=== PATIENT | female | born 1970 | race Caucasian/White ===

== ENCOUNTER → 2020-01-11 16:41 | Outpatient (CLI) | payer OTHER, SELFPAY ==
[2020-01-11 14:24] VITALS: BMI 35.2
[2020-01-16 15:28] LABS: HPV APTIMA, High Risk Negative (Negative)
== END ==
PROVIDERS: Referring Provider Nurse Practitioner Women's Health; Visit Provider Nurse Practitioner Women's Health
DX: Z12.4 Encounter for screening for malignant neoplasm of cervix (principal)
CPT/HCPCS: 87624; 88175; G0145

== ENCOUNTER → 2020-01-17 09:03 | Outpatient (CLI) | payer OTHER, SELFPAY ==
[2020-01-11 14:24] VITALS: BMI 35.2
[2020-01-17 09:20] LABS: Absolute Lymphocyte Count 1.05 X10^3/uL (0.83-4.51); Absolute Neutrophil Count 1.7 X10^3/uL (2.0-7.7); Basophil# 0.02 X10^3/uL; Basophil% 0.6 % (0-1); Eosinophil# 0.09 X10^3/uL; Eosinophils% 2.6 % (0-5); Hematocrit 42.3 % (37-47); Lymphocyte # 1.05 X10^3/ul (4.0); Lymphocyte % 30.3 % (19-41); Mean Corp Hgb Conc 33.1 g/dL (32-36); Mean Corpuscular Hgb 32.4 pg (27.0-32.0); Mean Corpuscular Volume 97.9 fL (81-99); Mean Platelet Vol. 9.9 fl (6.2-12.0); Monocyte# 0.55 X10^3/uL; Monocyte% 15.9 % (0-10); NRBC Flagged by Analyzer 0 % (0-5); Neutrophil # 1.74 X10^3/uL (2.7-7.7); Neutrophil % 50.3 % (47-70); Platelet Count 252 K/mm3 (150-450); RBC Distribution Width CV 12.3 % (11.6-14.6); RBC Distribution Width SD 44.4 fl (35.1-43.9); Red Blood Count 4.32 M/mm3 (4.2-5.4); White Blood Count 3.5 K/mm3 (4.4-11.0)
[2020-01-17 09:45] LABS: ALB/GLOB Ratio 0.9 RATIO (0.9-2.4); AST(SGOT) 21 U/L (15-37); Alanine Aminotransfer ALT/SGPT 38 U/L (13-56); Alkaline Phosphatase 41 U/L (45-117); Anion Gap 4 (5-15); BUN 14 mg/dL (7-18); BUN/Creat Ratio 16.7 RATIO (10-20); Calcium,Total 8.9 mg/dL (8.5-10.1); Chloride 105 mmol/L (98-107); Cholesterol 204 mg/dL (200); Creatinine, Serum 0.84 mg/dL (0.55-1.02); EST Glomerular Filtration Rate 77 mL/min (>60); Est Glom Filt Rate - Afr Amer 93 mL/min (>60); Globulin 4.6 g/dL (2.2-4.2); Glucose 83 mg/dL (74-106); High Density Lipoprotein 59 mg/dL; Potassium 3.7 mmol/L (3.5-5.1); Protein, Total 8.6 g/dL (6.4-8.2); Sodium Level 137 mmol/L (136-145); Thyroid Stim Hormone (TSH) 3.48 uIU/mL (0.358-3.74); Triglycerides 105 mg/dL; Very Low Density Lipoprotein 21 mg/dL (5-40)
== END ==
PROVIDERS: Referring Provider Nurse Practitioner Women's Health; Visit Provider Nurse Practitioner Women's Health
DX: Z00.00 Encounter for general adult medical examination without abnormal findings (principal); Z13.220 Encounter for screening for lipoid disorders; Z13.29 Encounter for screening for other suspected endocrine disorder; Z13.21 Encounter for screening for nutritional disorder
CPT/HCPCS: 36415; 80053; 80061; 82306; 84443; 85025

== ENCOUNTER → 2020-02-06 08:23 | Outpatient (CLI) | payer OTHER, SELFPAY ==
[2020-01-11 14:24] VITALS: BMI 35.2
--- NOTE | 2020-02-06 08:25 | BI_ITS ---
MAMMOGRAPHY - BILATERAL SCREENING REASON FOR EXAM: Female, 49 years old. Routine annual screening examination. PERTINENT HISTORY: Non-contributory. TECHNIQUE: Digital bilateral breast sarthak (3D mammographic acquisition) in the CC and MLO projections. 2-D mediolateral oblique (MLO) and craniocaudad (CC) views of both breasts were obtained. CAD: Full Field Digital Mammography with Computer Added Detection was performed. COMPARISON: Comparison is made with prior study dated 10/19/2016. FINDINGS: Breast Composition: The breasts are extremely dense, which lowers the sensitivity of mammography. There are no dominant masses or suspicious calcifications. Stable small benign-appearing bilateral axillary lymph nodes. No other significant abnormalities are identified. There has been no significant change since the prior study. BI/SCREEN MAMM (CAD) W/SARTHAK BILAT IMPRESSION: Stable bilateral screening mammogram. Yearly follow-up mammogram recommended. (A) ASSESSMENT CATEGORY: BIRADS Category 2: Benign. A letter regarding these results will be sent to the patient by the facility within 30 days. Approximately 10% of breast cancers are not detected by mammography. A normal mammogram should not delay biopsy of a clinically suspicious abnormality. [id number] Electronically Signed: Oli Enriquez, at 9:07 EST , Service support ,
== END ==
PROVIDERS: Referring Provider Nurse Practitioner Women's Health; Visit Provider Nurse Practitioner Women's Health
DX: Z12.31 Encounter for screening mammogram for malignant neoplasm of breast (principal)
CPT/HCPCS: 77063; 77067

== ENCOUNTER 2021-04-03 09:08 | Outpatient (CLI) | payer OTHER, SELFPAY ==
--- NOTE | 2021-04-03 09:09 | BI_ITS ---
MAMMOGRAPHY - BILATERAL SCREENING REASON FOR EXAM: Female, 50 years old. Routine annual screening examination. PERTINENT HISTORY: Non-contributory. TECHNIQUE: Digital bilateral breast sarthak (3D mammographic acquisition) in the CC and MLO projections. 2-D mediolateral oblique (MLO) and craniocaudad (CC) views of both breasts were obtained. CAD: Full Field Digital Mammography with Computer Added Detection was performed. COMPARISON: Comparison is made with prior study dated 02/06/2020 and 10/19/2016. FINDINGS: Breast Composition: The breasts are extremely dense, which lowers the sensitivity of mammography. There are no dominant masses or suspicious calcifications. Stable small benign-appearing bilateral axillary lymph nodes. No other significant abnormalities are identified. There has been no significant change since the prior study. BI/SCRN MAMM (CAD)W/SARTHAK BILAT IMPRESSION: Stable bilateral screening mammogram. Yearly follow-up mammogram recommended. (A) ASSESSMENT CATEGORY: BIRADS Category 2: Benign. A letter regarding these results will be sent to the patient by the facility within 30 days. Approximately 10% of breast cancers are not detected by mammography. A normal mammogram should not delay biopsy of a clinically suspicious abnormality. [id number] Electronically Signed: Oli Enriquez MD at 10:08 EST ,
== END 2021-04-03 23:59 | disposition home or self-care (01) ==
LOC: OPBI 09:08
PROVIDERS: Visit Provider Nurse Practitioner Women's Health
DX: Z12.31 Encounter for screening mammogram for malignant neoplasm of breast (principal)
CPT/HCPCS: 77063; 77067

== ENCOUNTER → 2022-04-06 | Outpatient (CLI) | payer OTHER, SELFPAY ==
--- NOTE | 2022-04-06 08:31 | BI_ITS ---
MAMMOGRAPHY - BILATERAL SCREENING REASON FOR EXAM: Female, 51 years old. Routine annual screening examination. PERTINENT HISTORY: Non-contributory. History of prior right needle breast biopsy. TECHNIQUE: Digital bilateral breast sarthak (3D mammographic acquisition) in the CC and MLO projections. 2-D mediolateral oblique (MLO) and craniocaudad (CC) views of both breasts were obtained. CAD: Full Field Digital Mammography with Computer Added Detection was performed. COMPARISON: Comparison is made with prior study dated 04/03/2021 and 02/06/2020. FINDINGS: Breast Composition: The breasts are extremely dense, which lowers the sensitivity of mammography. There are no dominant masses or suspicious calcifications. Stable small benign-appearing bilateral axillary lymph nodes. No other significant abnormalities are identified. There has been no significant change since the prior study. BI/SCRN MAMM (CAD)W/SARTHAK BILAT IMPRESSION: Stable bilateral screening mammogram. Yearly follow-up mammogram recommended. (A) ASSESSMENT CATEGORY: BIRADS Category 2: Benign. A letter regarding these results will be sent to the patient by the facility within 30 days. Approximately 10% of breast cancers are not detected by mammography. A normal mammogram should not delay biopsy of a clinically suspicious abnormality. [id number] Electronically Signed: Oli Enriquez MD at 9:53 EST ,
== END | disposition home or self-care (01) ==
LOC: OPBI 08:29
PROVIDERS: Referring Provider Nurse Practitioner Women's Health; Visit Provider Nurse Practitioner Women's Health
DX: Z12.31 Encounter for screening mammogram for malignant neoplasm of breast (principal)
CPT/HCPCS: 77063; 77067

== ENCOUNTER → 2023-04-07 | Outpatient (CLI) | payer OTHER, SELFPAY ==
--- NOTE | 2023-04-07 10:43 | BI_ITS ---
MAMMOGRAPHY - BILATERAL SCREENING REASON FOR EXAM: Female, 52 years old. Routine annual screening examination. PERTINENT HISTORY: Non-contributory. TECHNIQUE: Digital bilateral breast sarthak (3D mammographic acquisition) in the CC and MLO projections. 2-D mediolateral oblique (MLO) and craniocaudad (CC) views of both breasts were obtained. CAD: Full Field Digital Mammography with Computer Added Detection was performed. COMPARISON: Comparison is made with prior study dated April 06, 2022 and April 03, 2021. FINDINGS: Breast Composition: The breasts are extremely dense, which lowers the sensitivity of mammography. There are no dominant masses or suspicious calcifications. Stable bilateral fat containing axillary lymph nodes. No other significant abnormalities are identified. There has been no significant change since the prior study. BI/SCRN MAMM (CAD)W/SARTHAK BILAT IMPRESSION: Stable bilateral screening mammogram. Yearly follow-up mammogram recommended. (A) ASSESSMENT CATEGORY: BIRADS Category 2: Benign. A letter regarding these results will be sent to the patient by the facility within 30 days. Approximately 10% of breast cancers are not detected by mammography. A normal mammogram should not delay biopsy of a clinically suspicious abnormality. [id number] Electronically Signed: Oli Enriquez MD at 12:08 EST ,
== END | disposition home or self-care (01) ==
LOC: OPBI 10:42
PROVIDERS: Referring Provider Nurse Practitioner Women's Health; Visit Provider Nurse Practitioner Women's Health
DX: Z12.31 Encounter for screening mammogram for malignant neoplasm of breast (principal)
CPT/HCPCS: 77063; 77067

== ENCOUNTER → 2023-04-13 | Outpatient (CLI) | payer OTHER, SELFPAY ==
--- NOTE | 2023-04-13 08:03 | US_ITS ---
INDICATION: enlarged uterus EXAMINATION: Ultrasound US Pelvis Non OB Complete With Transvaginal Imaging TECHNIQUE: Transabdominal and transvaginal pelvic ultrasound was performed. Grayscale, spectral waveform, and color flow Doppler evaluation of the adnexa. COMPARISON: No relevant prior comparison study available FINDINGS: UTERUS: Retroverted. The uterus measures 7.5 x 7.3 x 4.4 cm. There is a mass on the left side of the uterus measuring about 3.8 x 3.6 x 3.3 cm consistent with uterine fibroid. The endometrial stripe measures 2.1 mm in AP diameter which is within normal limits. There is a nabothian cyst in the cervix. RIGHT OVARY: The right ovary measures 1.8 x 1.5 x 1.3 cm. Non-enlarged, normal echogenicity. There is normal arterial inflow and venous outflow present in the right ovary. LEFT OVARY: The left ovary measures 2.3 x 1.6 x 1.6 cm. Non-enlarged, normal echogenicity. There is normal arterial inflow and venous outflow present in the left ovary. FREE FLUID: None. US/Pelvic w/ Transvaginal IMPRESSION: 1. Uterine fibroid. 2. Nabothian cyst in the cervix. Electronically Signed: Devon Liu MD at 13:25 EST ,
--- OUTSIDE RECORDS SUMMARY | 2023-04-13 08:24 | XMS RPT_ITS | CCD ---
Author Name Unknown Address [address] [place] [address] Organization [facility] Care Team Providers Care Washer Engineer Name Role Phone Lucas SHERRILL, Grisel Orozco Unavailable [phone] Kade Mena MD Primary Care Provider KADE MENA Primary Care Unavailable KADE MENA Attending Unavailable KADE MENA Primary Care Unavailable KADE MENA Attending Unavailable KADE MENA Primary Care Unavailable KADE MENA Referring Unavailable KADE MENA Primary Care Unavailable Medications Current Medications Medication Drug Class(es) Dates Sig (Normalized) Sig (Original) levothyroxine sodium 0.025 mg oral tablet (4 sources) l-Thyroxine Start: 02-25-2023 End: 02-26-2024 take 1 tablet by mouth once daily levothyroxine (Synthroid, Levoxyl) 25 mcg tablet Indications: Subclinical hypothyroidism Take 1 tablet (25 mcg) by mouth once daily. Take on an empty stomach. Wait thirty minutes to eat or take other medications. 30 tablet 1 02/26/2023 02/26/2024 Active multivitamin capsule (4 sources) take 1 capsule by mouth once daily multivitamin capsule Take 1 capsule by mouth once daily. 0 Active 0.25 mg, 0.5 mg dose 1.5 ml semaglutide 1.34 mg/ml pen injector (3 sources) semaglutide (Ozempic) 0.25 mg or 0.5 mg(2 mg/1.5 mL) pen injector Inject under the skin 1 (one) time per week. 0 Active Problems Active Problems Problem Classification Problem Date Documented Date Episodic/Chronic Immunizations and screening for infectious disease (1 source) Autoantibody level - finding; Translations: [Other specified abnormal immunological findings in serum] 02-26-2023 Episodic Thyroid disorders (10 sources) Subclinical hypothyroidism; Translations: [Other specified hypothyroidism] Onset: 02-26-2023 02-26-2023 Chronic Unclassified (2 sources) Screening mammography ; Translations: [Encounter for screening mammogram for malignant neoplasm of breast] Onset: 10-08-2016 10-08-2016 Unclassified (2 sources) Gynecologic examination ; Translations: [Encounter for gynecological examination (general) (routine) without abnormal findings] Onset: 10-08-2016 10-08-2016 Past or Other Problems Problem Classification Problem Date Documented Da te Episodic/Chronic Other non-traumatic joint disorders (4 sources) Bilateral pain of joint of hands; Translations: [Pain in joints of right hand] Onset: 10-09-2022 10-05-2022 Episodic Other non-traumatic joint disorders (4 sources) Pain in joints of right hand; Translations: [Pain in joints of right hand] Onset: 10-07-2022 Episodic Other non-traumatic joint disorders (4 sources) Pain in joints of left hand; Translations: [Pain in joints of left hand] Onset: 10-07-2022 Episodic Other nutritional; endocrine; and metabolic disorders (4 sources) H/O: hypothyroidism; Translations: [Personal history of other endocrine, nutritional and metabolic disease] Onset: 10-09-2022 10-05-2022 Episodic Other nutritional; endocrine; and metabolic disorders (4 sources) Personal history of other endocrine, nutritional and metabolic disease; Translations: [Personal history of other endocrine, nutritional and metabolic disease] Onset: 10-07-2022 Episodic Other screening for suspected conditions (not mental disorders or infectious disease) (3 sources) Patient encounter status; Translations: [Encounter for screening for malignant neoplasm of colon] Onset: 10-07-2022 10-05-2022 Episodic Results Test Name Value Interpretation Reference Range Facil ity Vital Signs Date Time Vital Sign Value Performing Clinician Facility 02-26-2023 10:37-0500 Body height 154.9 cm Kade Mena MD Work Phone: [facility] 02-26-2023 10:37-0500 Body mass index (BMI) [Ratio] 33.25 kg/m2 Kade Mena MD Work Phone: [facility] 02-26-2023 10:37-0500 Body weight 79.83 kg Kade Mena MD Work Phone: [facility] 02-26-2023 10:37-0500 Diastolic blood pressure 64 mm[Hg] Kade Mena MD Work Phone: [facility] 02-26-2023 10:37-0500 Heart rate 76 /min Kade Mena MD Work Phone: [facility] 02-26-2023 10:37-0500 Systolic blood pressure 118 mm[Hg] Kade Mena MD Work Phone: [facility] 10-05-2022 09:24-0400 Body height 154.9 cm Kade Mena MD Work Phone: [facility] 10-05-2022 09:24-0400 Body mass index (BMI) [Ratio] 36.43 kg/m2 Kade Mena MD Work Phone: [facility] 10-05-2022 09:24-0400 Body weight 87.45 kg Kade Mena MD Work Phone: [facility] 10-05-2022 09:24-0400 Diastolic blood pressure 70 mm[Hg] Kade Mena MD Work Phone: [facility] 10-05-2022 09:24-0400 Heart rate 88 /min Kade Mena MD Work Phone: [facility] 10-05-2022 09:24-0400 Systolic blood pressure 132 mm[Hg] Kade Mena MD Work Phone: [facility] 10-08-2016 13:40-0400 BMI (Body Mass Index) 33.97 kg/m2 Grisel Zavala NP [facility] 10-08-2016 13:40-0400 Body Temperature 98.2 [degF] Grisel Zavala NP [facility] 10-08-2016 13:40-0400 BP Diastolic 77 mm[Hg] Grisel Zavala NP [facility] 08-31-2017 13:40-0400 BP Systolic 119 mm[Hg] Grisel Lucas NP [facility] 10-08-2016 13:40-0400 Height 154.94 cm Grisel Ravenna [employer]CTION OFFICER [facility] 10-08-2016 13:40-0400 Pulse (Heart Rate) 105 /min Grisel Ravenna NP [facility] 10-08-2016 13:40-0400 Respiratory Rate 17 /min Grisel Zavala NP [facility] 10-08-2016 13:40-0400 Weight 81.56 kg Grisel Ravenna NP [facility] Encounters Encounter Date Encounter Type Care Provider Facility Start: 03-01-2023 End: 03-02-2023 ambulatory KADE MENA [facility] Start: 03-01-2023 End: 03-01-2023 Subsequent hospital visit by physician Garry Lux 1 [facility] Procedures Date Procedure Procedure Detail Performing Clinician Start: 03-01-2023 US THYROID KADE Orozco Start: 03-01-2023 Us soft tissue head & neck real time imge docm Kade Mena MD Work Phone: Start: 02-25-2023 Thyrotropin [Units/v olume] in Serum or Plasma Kade Mena MD Work Phone: Start: 10-09-2022 CBC W Auto Different ial panel - Blood KADE MENA Start: 10-09-2022 Comprehensive metabo lic 2000 panel - Serum or Plasma KADE MENA Start: 10-09-2022 Lipid panel KADE Orozco Start: 10-09-2022 THYROID PEROXIDASE ( TPO) ANTIBODY KADE MENA Start: 10-09-2022 THYROXINE, FREE KADE CEDEÑO Start: 10-09-2022 TSH WITH REFLEX TO F REE T4 IF ABNORMAL KADE MENA Start: 10-09-2022 Lipid 1996 panel - S mo or Plasma Kade Mena MD Work Phone: Start: 10-05-2022 Oncology colorectal screening felipe 10 dna eleazar MENA Plan of Treatment Date Care Activity Detail Author Start: 10-10-2027 Lipid panel Lipid Panel [facility] Start: 10-26-2025 Screening for malignant neoplasm of colon [facility] Start: 02-26-2024 Thyroid stimulating hormone measurement TSH Level [facility] Start: 10-07-2023 Yearly Adult Physical Yearly Adult Physical [facility] Start: 03-01-2023 End: 03-01-2023 Patient encounter procedure 03/01/2023 9:30 AM EST Appointment [id number] [place] [id number] [facility] Start: 02-26-2023 End: 02-27-2024 Triiodothyronine (T3) Free [Mass/volume] in Serum or Plasma [facility] Service Area Work Phone: Payers Date Payer Category Payer Unknown [id number] 2021 Unknown [id number] 1970 Unknown [id number] 1970 Unknown [id number] 1970 Unknown [id number] 1970 Unknown [id number] Social History Date Type Detail Facility Start: 10-05-2022 [facility] Work Phone: Start: 10-05-2022 Tobacco use and exposure Smoke less tobacco non-user [facility] Work Phone: Start: 10-05-2022 End: 02-26-2023 Alcohol intake Ex-drinker (finding) [facility] Work Phone: Start: 1970 [facility]igned At Female [facility] Start: 10-04-2022 Gender identity Identifies as female gender (finding) [facility] Work Phone: Start: 10-13-2022 End: 02-26-2023 Sexual orientation Not on file [facility] Work Phone: Start: 10-13-2022 End: 02-26-2023 History of Social function [facility] Work Phone: Start: 02-15-2023 End: 03-01-2023 Exposure to SARS-CoV-2 (event) Not sure [facility] History of Present illness Narrative 02-26-2023 Yue Medina LPN - 02/26/2023 10:40 AM Darnell Mena MD - 02/26/2023 10:40 AM EST Note Date & Type Note Facility 02-26-2023 History of Present illness Narrative Here to discuss meds Subjective Maria C Olsen is a 52 y.o. female who presents for Discuss meds. TAMEKA Lombardi presents for follow up thyroid labs. Spouse Carlos joined us via telephone. Was on thyroid medication after having symptoms estimate 20 years ago. Has had concerns of weight gain, fatigue and joint pains. Has borderline tsh with normal t4 earlier this fall. TPO antibodies high. Opted to let a little time pass, and repeat, and tsh now 6, normal t4, consistent with subclinical hypothyroidism. Discussed lack of good data in these cases, but no evidence of harm with treatment, and with not treatment. Discussed possible benefits of treatment, and possible harm ( in this case with such a low dose, inconvenience of taking the pill and lab draws. We discussed getting a thyroid ultrasound for baseline assessment of size/presence of nodules, etc. She is on semaglutide for weight loss . Review of Systems All other systems reviewed and are negative. . Objective Visit Vitals BP 118/64 (BP Location: Left arm, Patient Position: Sitting) Pulse 76 Physical Exam Vitals and nursing note reviewed. Constitutional: General: She is not in acute distress. Appearance: Normal appearance. She is not toxic-appearing. HENT: Head: Normocephalic and atraumatic. Neck: Comments: Mild diffuse thyroid enlargement on exam, symmetric Pulmonary: Effort: Pulmonary effort is normal. Musculoskeletal: Comments: Skin: Coloration: Skin is not pale. Neurological: General: No focal deficit present. Mental Status: She is alert. Psychiatric: Mood and Affect: Mood normal. Behavior: Behavior normal. 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 Thyroid us pending. Call concerns. documented in this encounter [facility] Work Phone: History of Present illness Narrative 10-05-2022 Yue Medina LPN - 10/05/2022 9:20 AM EDTKade Mena MD - 10/05/2022 9:20 AM EDT Note Date & Type Note Facility 10-05-2022 History of Present illness Narrative Establish care; saw AFP but hasn't been seen in over 10 years Subjective Maria C Olsen is a 52 y.o. female who presents for Establish Care. HPI New patient to establish care. Sees outpatient services director regularly, no PCP in several years. No regular medications, no drug allergies. Mammogram/outpatient services director care current. Has history of hypothyroidism, treated with medicine for a brief time and then did okay without it. Not checked recently. She states her weight has increased over time. Briefly discussed diet and exercise.Periods had been extremely regular in past and have started to get more irregular lately. She has had intermittent pain in wrist and hands including mcps for some time. Waxes and wanes in intensity, describes as soreness, better as day goes on. Lasts at least an hour in the morning. Declines influenza vaccine. Candidate for colon cancer screening, no family history of colon cancer . Discussed options, chooses cologuard. Review of Systems All other systems reviewed and are negative. . Objective Visit Vitals BP 132/70 (BP Location: Left arm, Patient Position: Sitting) Pulse 88 Physical Exam Vitals and nursing note reviewed. Constitutional: General: She is not in acute distress. Appearance: Normal appearance. She is not toxic-appearing. HENT: Head: Normocephalic and atraumatic. Eyes: Comments: No exophthalmos Neck: Thyroid: No thyromegaly. Cardiovascular: Rate and Rhythm: Normal rate and regular rhythm. Heart sounds: No murmur heard. Pulmonary: Effort: Pulmonary effort is normal. Breath sounds: Normal breath sounds. Musculoskeletal: Cervical back: Neck supple. No rigidity. Comments: Skin: General: Skin is warm and dry. Neurological: General: No focal deficit present. Mental Status: She is alert and oriented to person, place, and time. Psychiatric: Mood and Affect: Mood normal. Behavior: Behavior normal. Assessment/Plan Problem List Items Addressed This Visit None Visit Diagnoses Wellness examination - Primary Relevant Orders CBC and Auto Differential Comprehensive Metabolic Panel Lipid Panel TSH with reflex to Free T4 if abnormal Thyroid Peroxidase (TPO) Antibody History of hypothyroidism Relevant Orders TSH with reflex to Free T4 if abnormal Thyroid Peroxidase (TPO) Antibody Arthralgia of both hands Relevant Orders TSH with reflex to Free T4 if abnormal Thyroid Peroxidase (TPO) Antibody Screening for colon cancer Relevant Orders Cologuard colon cancer screening Kade Mena MD documented in this encounter [facility] Work Phone: Instructions 10-05-2022 Patient Instructions Note Date & Type Note Facility 10-05-2022 Instructions Kade Mena MD - 10/05/2022 9:20 AM EDT Office policies and procedures reviewed, including how to contact iron piler provider after hours. We discussed getting some basic labs, if normal consider further workup for arthralgias. Call concerns. Routine followup annually. documented in this encounter [facility] Work Phone: Evaluation note Note Date & Type Note Facility documented in this encounter [facility] Work Phone: Evaluation note Note Date & Type Note Facility documented in this encounter [facility] Work Phone: Evaluation note Note Date & Type Note Facility documented in this encounter [facility] Work Phone: Summary Purpose Family History No Family History Records FoundNo Family History Records FoundNo Family History Records FoundNo Family History Records Found Advance Directives No Advanced Directives Records FoundNo Advanced Directives Records FoundNo Advanced Directives Records FoundNo Advanced Directives Records Found Reason for Referral Specialty Diagnoses / Procedures Referred By Aissatou harris Referred To Contact Radiology Diagnoses Neeta's thyroiditis Procedures US thyroid Kade Mena MD [address] [facility] [place] [address] Referral ID Status Reason Start Date Expiration Date Visits Requested Visits Authorized [id number] Authorized Perform Procedure 02/26/2023 02/26/2024 1 1 Additional Source Comments INFORMATION SOURCE (unrecogn ized section and content) DATE CREATED AUTHOR AUTHOR'S ORGANIZ ATION 10/13/2022 [facility] DATE CREATED AUTHOR AUTHOR'S ORGANIZ ATION 02/28/2023 [facility] DATE CREATED AUTHOR AUTHOR'S ORGANIZ ATION 03/07/2023 [facility] Reason for Visit (unrecogniz ed section and content) Reason Comments Discuss meds Specialty Diagnoses / Procedures Referred By Aissatou harris Referred To Contact Radiology Diagnoses Neeta's thyroiditis Procedures US thyroid Kade Mena MD [address] [facility] [place] [address] Referral ID Status Reason Start Date Expiration Date Visits Requested Visits Authorized [id number] Authorized Perform Procedure 02/26/2023 02/26/2024 1 1 Care Teams (unrecognized sec tion and content) Washer Engineer Relationship Specialty Start Date End Date Kade Mena MD [address] [place] [address] PCP - General Family Medicine 10/05/22 Washer Engineer Relationship Specialty Start Date End Date Kade Mena MD [address] [place] [address] PCP - General Family Medicine 10/05/22 FOR RECORDS PERTAINING TO PATIENTS WHO ARE OR HAVE BEEN ENROLLED IN A CHEMICAL DEPENDENCY/SUBSTANCEABUSE PROGRAM, SOME INFORMATION MAY BE OMITTED. This clinical summary was aggregated from multiple sources. Caution should be exercised in using it in the provision of clinical care. This summary normalizes information from multiple sources, and as a consequence, information in this document may materially change the coding, format and clinical context of patient data. In addition, data may be omitted in some cases. CLINICAL DECISIONS SHOULD BE BASED ON THE PRIMARY CLINICAL RECORDS. [facility]. provides no warranty or guarantee of the accuracy or completeness of information in this document.
== END | disposition home or self-care (01) ==
LOC: US 08:03
PROVIDERS: Referring Provider Nurse Practitioner Women's Health; Visit Provider Nurse Practitioner Women's Health
DX: N85.2 Hypertrophy of uterus (principal)
CPT/HCPCS: 76830; 76856

== ENCOUNTER → 2024-04-11 | Outpatient (CLI) | payer OTHER, SELFPAY ==
--- NOTE | 2024-04-11 12:45 | BI_ITS ---
PROCEDURE: SCRN MAMM (CAD)W/SARTHAK BILAT REASON FOR EXAM: F, Age 53 y/o, presents for annual screening mammogram. No family history of breast cancer. TECHNIQUE: Bilateral screening digital breast tomosynthesis with 2D and 3D images. Computer aided detection. COMPARISON: 03/30/2023, 04/06/2022 FINDINGS: The breasts are heterogeneously dense which may obscure small masses. The mammogram demonstrates that the patient has dense breasts. Supplemental screening with whole breast ultrasound or MRI may be considered for further evaluation. No suspicious masses, areas of developing architectural distortion, or suspicious calcifications. BI/SCRN MAMM (CAD)W/SARTHAK BILAT IMPRESSION: There is no mammographic evidence of malignancy. BI-RADS 1: NEGATIVE. RECOMMEND ANNUAL MAMMOGRAPHIC SCREENING. Follow-up code: Routine Follow-up The patient will be notified of the results by letter. Reading Location: [id number]
[2024-04-16 15:08] LABS: HPV APTIMA, High Risk Negative (Negative)
== END | disposition home or self-care (01) ==
PROVIDERS: Referring Provider Nurse Practitioner Women's Health; Visit Provider Nurse Practitioner Women's Health
DX: Z12.31 Encounter for screening mammogram for malignant neoplasm of breast (principal); Z12.4 Encounter for screening for malignant neoplasm of cervix
CPT/HCPCS: 77063; 77067; 87624; 88175; G0145

== ENCOUNTER → 2024-05-18 | Outpatient (CLI) | payer OTHER, SELFPAY ==
--- NOTE | 2024-05-18 10:47 | EMB_PTH ---
PATIENT: MIKIE CORTES LOC: [facility] U#:[id number] AGE/SX: 54/F ROOM: RE05/18/[address]: NURA Lira : 1970 BED: DIS: 05/18/2024 SPEC #: [id number] RECD: 05/18/24 15:01 STATUS: SERA REAsuncion #: [id number] JOB: 05/18/24 10:[address]: Grisel Zavala NP DEPT: SURGICAL PATHOLOGY RECD BY: Lele Patton ENTERED: 05/18/24 15:01 SP TYPE: ENDOM BX/C MERI DR: Kasandra Primary Care Phys Tissues: A - Endometrium, NOS Procedures: Surgery Specimen Level IV HEADER OPERATION: Endometrial biopsy PRE-OP DIAGNOSIS: Abnormal uterine bleeding TISSUE SUBMITTED: A- Endometrial lining MICROSCOPIC DIAGNOSIS A. Endometrium, biopsy: * Scant superficial strips of inactive endometrium MICROSCOPIC DESCRIPTION Slides are reviewed. GROSS DESCRIPTION A. Received in formalin in a container labeled with the patient's name, date of , and with no further designation are multiple red-sena fragments of soft tissue admixed with blood and mucus measuring 2.5 x 2.0 x 0.3 cm in aggregate. Submitted in toto in A1. SMB 05/19/2024 CPT:30737
== END | disposition home or self-care (01) ==
LOC: LABSPEC 11:34
PROVIDERS: Referring Provider Nurse Practitioner Women's Health; Visit Provider Nurse Practitioner Women's Health
DX: N93.9 Abnormal uterine and vaginal bleeding, unspecified (principal)
CPT/HCPCS: 88305